=== PATIENT | female | born 1935 | race Caucasian/White ===

== ENCOUNTER 2024-02-23 10:52 | Emergency (ER) | payer MEDICARE ==
[~2024-02-23] VITALS: Ht 162.6 cm; Wt 51.3 kg
[2024-02-23 15:15] VITALS: BP 102/62; TEMP 98.6; O2SAT 99
== END 2024-02-23 15:32 ==
LOC: ER 11:08
DX: S00.83XA Contusion of other part of head, initial encounter (principal); S09.90XA Unspecified injury of head, initial encounter; F03.90 Unspecified dementia, unspecified severity, without behavioral disturbance, psychotic disturbance, mood disturbance, and anxiety; I10 Essential (primary) hypertension; W18.30XA Fall on same level, unspecified, initial encounter; Y93.89 Activity, other specified; Y92.89 Other specified places as the place of occurrence of the external cause; Y99.8 Other external cause status
CPT/HCPCS: 70450-TC; 71045-TC; 72125-TC; 72170-TC